=== PATIENT | female | born 1960 | race Caucasian/White ===

== ENCOUNTER 2018-09-14 11:11 | Emergency (ER) | payer BC ==
[2018-09-14] MEDS ORDERED: Morphine 10 MG/ML VIAL ONE (12:22)
--- NOTE | 2018-09-14 12:50 | RAD ---
LEFT WRIST THREE VIEWS: HISTORY: A 58-year-old female with a history of injury and pain from a fall. FINDINGS: Slightly comminuted distal radial fracture with intraarticular extension with some dorsal angulation. Essentially nondisplaced ulnar styloid process fracture. Intraosseous cyst within the scaphoid bon e, but no evidence for acute scaphoid fracture. Slight irregularity of the lateral aspect of the simone ate bone, with some minimal subchondral cystic changes. Mild degenerative changes of the trapezia an d first metacarpal joint. IMPRESSION: 1. Comminuted distal radial fracture with intraarticular extension and some dorsal angulation. 2. Essentially nondisplaced ulnar styloid process fracture. 3. Intraosseous cystic changes, particularly in the navicular bone, as well as small intraosseous cy stic changes at the lateral aspect of the lunate bone. POS: NELLY
== END 2018-09-14 13:35 | disposition home or self-care (01) ==
LOC: ERS 11:11
DX: S52.612A Displaced fracture of left ulna styloid process, initial encounter for closed fracture (principal); S52.502A Unspecified fracture of the lower end of left radius, initial encounter for closed fracture; I10 Essential (primary) hypertension; M85.60 Other cyst of bone, unspecified site; G40.909 Epilepsy, unspecified, not intractable, without status epilepticus; Z79.899 Other long term (current) drug therapy; W19.XXXA Unspecified fall, initial encounter
CPT/HCPCS: 25600; 96372; J2270

== ENCOUNTER 2018-09-24 12:07 | Outpatient (CLI) | payer BC ==
[2018-09-24 13:56] LABS: Hemoglobin 12.5 g/dL (12.0-16.0); Mean Corpuscular HGB CONC 33.8 g/dL (32.0-36.0); Mean Corpuscular Hemoglobin 33.7 pg (27.0-31.0); Mean Corpuscular Volume 99.5 fL (78.0-98.0); Mean Platelet Volume 6.9 fL (7.4-10.4); Platelet Count 267 thou/uL (130-400); RBC Distribution Width 11.6 % (11.5-14.5); Red Blood Cell (RBC) Count 3.72 mill/uL (4.20-5.40); White Blood Cell (WBC) Count 6.6 thou/uL (4.8-10.8)
[2018-09-24 14:22] LABS: Anion Gap 11 mmol/L (10-20); BUN (Urea Nitrogen) 11 mg/dL (9.8-20.1); Calc. Creatinine Clearance 0 mL/min (70-130); Calcium 9.3 mg/dL (7.8-10.44); Carbon Dioxide 29 mmol/L (22-29); Chloride 101 mmol/L (98-107); Estimated GFR-MDRD Greater than 90; Glucose 93 mg/dL (70-105); Potassium 3.3 mmol/L (3.5-5.1); Sodium 138 mmol/L (136-145)
--- NOTE | 2018-09-25 09:22 | EKG ---
Test Reason : Blood Pressure : / mmHG Vent. Rate : 090 BPM Atrial Rate : 090 BPM P-R Int : 136 ms QRS Dur : 106 ms QT Int : 390 ms P-R-T Axes : 074 089 076 degrees QTc Int : 477 ms Normal sinus rhythm Right atrial enlargement Borderline ECG No previous ECGs available Confirmed by DR. Russell GARCIA ([id number] on 09/25/2018 9:22:18 AM Referred By: MICHELLE Confirmed By:DR. Russell GARCIA
== END 2018-09-24 12:08 | disposition home or self-care (01) ==
LOC: LABBT 12:07
PROVIDERS: ATTEND Orthopaedic Surgery
DX: Z01.818 Encounter for other preprocedural examination (principal); S62.102A Fracture of unspecified carpal bone, left wrist, initial encounter for closed fracture
CPT/HCPCS: 80048; 85027; 93005; 93010

== ENCOUNTER 2018-09-25 08:42 | Day surgery (SDC) | payer BC ==
[2018-09-24 13:17] VITALS: BMI 22.8
[2018-09-25] MEDS ORDERED: Midazolam HCl 2 mg/2 ml Vial ONE (09:09)
[2018-09-25] MEDS ORDERED: Fentanyl 100 MCG/2 ML VIAL ONE (09:09)
[2018-09-25] MEDS ORDERED: Ropivacaine 0.2% HCl/PF 20 ML ONE (09:09)
[2018-09-25] MEDS ORDERED: Zolpidem Tartrate 5 MG TAB PO PRN (10:13)
[2018-09-25] MEDS ORDERED: traMADol HCl 50 MG TAB PO PRN ×2 (10:13)
[2018-09-25] MEDS ORDERED: HYDROcodone/Acetaminophen 10/325 mg Tablet PO PRN ×2 (10:13)
[2018-09-25] MEDS ORDERED: Promethazine HCl 25 MG/ML VIAL IM PRN (10:13)
[2018-09-25] MEDS ORDERED: Ropivacaine 0.2% 550 ML 550 ML NERVE BLCK SCH (10:13)
[2018-09-25] MEDS ORDERED: Ondansetron PF 4 MG/2 ML Vial IVP PRN (10:13)
[2018-09-25] MEDS ORDERED: Fentanyl 100 MCG/2 ML VIAL SLOW IVP PRN (10:14)
[2018-09-25] MEDS ORDERED: CEFAZOLIN 2 GM/50 ML BAG ONE (10:58)
[2018-09-25] MEDS ORDERED: Ketorolac Tromethamine 30 MG/ML VIAL IVP SCH (12:00)
--- NOTE | 2018-09-25 13:21 | RAD ---
THREE VIEWS LEFT WRIST: DATE: 09/25/2018. PROVIDED CLINICAL HISTORY: ORIF. FINDINGS: Comparison 09/14/2018. Interval postoperative changes of volar plate and screw fixation of previously described distal radial fracture with resultant improved alignment. IMPRESSION: As above. POS: TPC
[2018-09-25] MEDS ORDERED: Ropivacaine 0.5% HCl/PF (150 MG/30 ML VIAL) ONE (16:18)
[2018-09-25] MEDS ORDERED: PROPOFOL 200 MG/20 ML VIAL ONE (16:37)
[2018-09-25] MEDS ORDERED: Dexamethasone 20 MG/5 ML VIAL ONE (16:37)
[2018-09-25] MEDS ORDERED: Ondansetron PF 4 MG/2 ML Vial ONE (16:37)
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
== END 2018-09-25 15:45 | disposition home or self-care (01) ==
LOC: SDC 08:42
PROVIDERS: ATTEND Orthopaedic Surgery
PROC: 0PSJ04Z Reposition Left Radius with Internal Fixation Device, Open Approach (ICD-10-PCS; principal; 2018-09-25)
DX: S52.572A Other intraarticular fracture of lower end of left radius, initial encounter for closed fracture (principal); I10 Essential (primary) hypertension; E78.00 Pure hypercholesterolemia, unspecified; G40.909 Epilepsy, unspecified, not intractable, without status epilepticus; H40.9 Unspecified glaucoma; Z88.5 Allergy status to narcotic agent; Z88.6 Allergy status to analgesic agent; Z88.2 Allergy status to sulfonamides; Z79.899 Other long term (current) drug therapy; W17.89XA Other fall from one level to another, initial encounter
CPT/HCPCS: 76000; A4306; C1713; J1100; J2250; J2405; J2704; J2795; J3010